=== PATIENT | female | born 1975 | race Two or more races ===

== ENCOUNTER 2020-05-06 13:04 | Outpatient (REF) | payer OTHER, SELFPAY ==
[2020-05-08 20:16] LABS: HPV mRNA E6/E7 rflx Not Detected (Not Detected)
== END 2020-05-06 13:05 | disposition home or self-care (01) ==
LOC: HO.LAB 13:04
PROVIDERS: PCP Hospitalist; Visit Provider Obstetrics & Gynecology
DX: Z01.419 Encounter for gynecological examination (general) (routine) without abnormal findings (principal); N97.9 Female infertility, unspecified; Z12.11 Encounter for screening for malignant neoplasm of colon
CPT/HCPCS: 36415; 87624; 88142

== ENCOUNTER 2020-05-08 08:01 | Outpatient (REF) | payer OTHER, SELFPAY ==
--- NOTE | ~2020-05-08 | MM_ITS ---
EXAMINATION: MM SCREENING DIGITAL BREAST TOMOSYNTHESIS, BILATERAL CLINICAL INFORMATION: Screening. Asymptomatic. Prior flv-of-hdiwd mammography from [place] currently unavailable. The lifetime risk of breast cancer based on the Tyrer-Cuzick Model is 13%. COMPARISON: None. TECHNIQUE: Digital breast tomosynthesis is performed in both the craniocaudal and mediolateral oblique views along with computer-aided detection (CAD). Synthesized 2D images are generated from the tomosynthesis. FINDINGS: The breasts are heterogeneously dense, which may obscure small masses (ACR BI-RADS breast composition Category c). There is fine fibronodular parenchymal pattern. There is no dominant nodularity, significant mass, architectural abnormality. The axilla and skin contours are unremarkable. There are diffuse scattered benign-appearing bilateral punctate round calcifications in each breast. Radiology department staff will attempt to retrieve prior hzw-jl-kobrh mammography to allow for comparison in an addendum report. MM/MM tomosynthesis screening BI IMPRESSION: No mammographic evidence of malignancy. Bilateral targeted punctate round calcifications. ASSESSMENT: BI-RADS 2: Benign RECOMMENDATION: 1. Routine annual mammography screening. 2. Radiology department staff will attempt to retrieve prior ddw-yo-jyurt mammography to allow for comparison in an addendum report. This patient's information was entered into a reminder system with a target due date for their next mammogram.
== END 2020-05-08 08:02 | disposition home or self-care (01) ==
LOC: HO.MAMMO 08:01
PROVIDERS: Visit Provider Obstetrics & Gynecology
DX: Z12.31 Encounter for screening mammogram for malignant neoplasm of breast (principal)
CPT/HCPCS: 77063; 77067

== ENCOUNTER → 2020-05-13 11:33 | Outpatient (BNVA) | payer OTHER, SELFPAY | PROVIDERS: PCP Hospitalist; Visit Provider Obstetrics & Gynecology ==

== ENCOUNTER → 2020-06-26 09:27 | Outpatient (BNVA) | payer OTHER, SELFPAY | PROVIDERS: PCP Hospitalist; Referring Provider Hospitalist; Visit Provider Physician Assistant ==

== ENCOUNTER 2021-05-09 09:05 | Outpatient (REF) | payer OTHER, SELFPAY ==
--- NOTE | ~2021-05-09 | MM_ITS ---
EXAMINATION: MM SCREENING DIGITAL BREAST TOMOSYNTHESIS, BILATERAL CLINICAL INFORMATION: Screening. Asymptomatic. The lifetime risk of breast cancer based on the Tyrer-Cuzick Model is 13%. COMPARISON: Mammography: 05/08/2020 TECHNIQUE: Digital breast tomosynthesis is performed in both the craniocaudal and mediolateral oblique views along with computer-aided detection (CAD). Synthesized 2D images are generated from the tomosynthesis. FINDINGS: The breasts are heterogeneously dense, which may obscure small masses (ACR BI-RADS breast composition Category c). There is fibronodular parenchymal pattern similar in distribution to prior exam. There is no significant mass or architectural abnormality. Again, there are numerous punctate calcifications throughout both breasts similar in number and distribution. No significant change. The axilla and skin contours are unremarkable. MM/MM tomosynthesis screening BI IMPRESSION: There are no significant changes from prior study. ASSESSMENT: BI-RADS 2: Benign RECOMMENDATION: Routine annual mammography screening. This patient's information was entered into a reminder system with a target due date for their next mammogram.
== END 2021-05-09 09:06 | disposition home or self-care (01) ==
LOC: HO.MAMMO 09:05
PROVIDERS: Visit Provider Hospitalist
DX: Z12.31 Encounter for screening mammogram for malignant neoplasm of breast (principal)
CPT/HCPCS: 77063; 77067

== ENCOUNTER 2022-05-15 09:14 | Outpatient (REF) | payer OTHER, SELFPAY ==
--- NOTE | ~2022-05-15 | MM_ITS ---
EXAMINATION: MM SCREENING DIGITAL BREAST TOMOSYNTHESIS, BILATERAL CLINICAL INFORMATION: Screening. Asymptomatic. The lifetime risk of breast cancer based on the Tyrer-Cuzick Model is 14%. COMPARISON: Mammography: 05/09/2021, 05/08/2020 (new baseline) TECHNIQUE: Digital breast tomosynthesis is performed in both the craniocaudal and mediolateral oblique views along with computer-aided detection (CAD). Synthesized 2D images are generated from the tomosynthesis. FINDINGS: The breasts are heterogeneously dense, which may obscure small masses (ACR BI-RADS breast composition Category c). There are no significant masses, abnormal calcifications, or other abnormalities. Again, there are diffuse bilateral round calcifications similar in distribution and number to prior studies. No developing density or architectural abnormality. The axilla are unremarkable. MM/MM tomosynthesis screening BI IMPRESSION: No mammographic evidence of malignancy. ASSESSMENT: BI-RADS 2: Benign RECOMMENDATION: Routine annual mammography screening. This patient's information was entered into a reminder system with a target due date for their next mammogram.
== END 2022-05-15 09:15 | disposition home or self-care (01) ==
LOC: HO.MAMMO 09:14
PROVIDERS: Visit Provider Hospitalist
DX: Z12.31 Encounter for screening mammogram for malignant neoplasm of breast (principal)
CPT/HCPCS: 77063; 77067

== ENCOUNTER → 2023-05-20 10:30 | Outpatient (BNV) | payer MEDICAID, SELFPAY | PROVIDERS: Visit Provider Radiology Diagnostic Radiology | DX: Z12.31 Encounter for screening mammogram for malignant neoplasm of breast (principal) | CPT/HCPCS: 77063; 77067 ==

== ENCOUNTER 2023-05-20 10:45 | Outpatient (REF) | payer MEDICAID, SELFPAY ==
--- NOTE | ~2023-05-20 | MM_ITS ---
EXAMINATION: MM SCREENING DIGITAL BREAST TOMOSYNTHESIS, BILATERAL CLINICAL INFORMATION: Screening. Asymptomatic. COMPARISON: Mammography: This study is compared with prior exams dating back to 2020. TECHNIQUE: Digital breast tomosynthesis is performed in both the craniocaudal and mediolateral oblique views along with computer-aided detection (CAD). Synthesized 2D images are generated from the tomosynthesis. FINDINGS: The breasts are heterogeneously dense, which may obscure small masses (ACR BI-RADS breast composition Category c). There are no significant masses, abnormal calcifications, or other abnormalities. Bilateral, benign calcifications are present in each breast. MM/MM tomosynthesis screening BI IMPRESSION: No mammographic evidence of malignancy. ASSESSMENT: BI-RADS BI-RADS 2 - Benign Findings RECOMMENDATION: Routine annual mammography screening. 1 year F/U This examination should not preclude the clinical evaluation of a suspicious palpable abnormality. This patient's information was entered into a reminder system with a target due date for their next mammogram.
== END 2023-05-20 10:46 | disposition home or self-care (01) ==
LOC: HO.MAMMO 10:45
PROVIDERS: PCP Student in an Organized Health Care Education/Training Program; Visit Provider Student in an Organized Health Care Education/Training Program
DX: Z12.31 Encounter for screening mammogram for malignant neoplasm of breast (principal)
CPT/HCPCS: 77063; 77067

== ENCOUNTER 2024-05-25 10:03 | Outpatient (REF) | payer MEDICAID, SELFPAY ==
--- OUTSIDE RECORDS SUMMARY | 2024-05-25 11:40 | XMS_ITS | Clinical Summary ---
Author Organization [facility] Address [address] [place] [address] Care Team Providers Care Dental Assistant Name Role Phone Elena Avila NP Primary Care Provider [phone] Source Comments PLEASE NOTE, if this patient is a minor, it may be UNLAWFUL to discuss sensitive information that is contained in these records (such as FAMILY PLANNING, MENTAL HEALTH or SUBSTANCE ABUSE) with the minor patient's parent or other person without the patient's specific authorization.[facility] Allergies No known active allergies Medications ibuprofen 400 mg tabletIndication s:Tension headache Take 1 Tablet by mouth 4 (four) times daily as needed for pain 120 Tablet 01/18/2023 Active carbamide peroxide (DEBROX) 6.5 % otic solutionIndicati ons:Bilateral impacted cerumen Place 10 Drops into both ears 2 (two) times daily 15 mL 2 08/30/2023 Active Active Problems Problem Noted Date Diagnosed Date Hx of complete eye exam 09/10/2023 Overview (09/10/2023): 09/06/2023 - Molding Cutter report: 1) Abnormal vision finding OU: New Rx glasses given today - f/u 1 yr 2) Macular Drusen OU: Recommend observation and f/u 1 yr 3) Nuclear Sclerosis OU: Trace cataracts found - not visually significant - f/u 1 year for MED DFE or sooner if vision changes 4) Astigmatism, Reqular OU: New Rx glasses - f/u 1 year 5) Myopia OU: New Rx glasses - f/u 1 year 6) Presbyopia OU: New Rx glasses - f/u 1 yr Hx of mammogram 06/18/2023 Overview (06/18/2023): 2023 - Mammogram - Findings: The breasts are heterogeneously dense, which may obscure small masses - No significant masses, abnormal calcifications, or other abnormalities. Bilateral, benign calcifications are present in each breast - BI- RADS 2 (benign findings) - Recommendation: Routine annual mammography screening. Encounters Date Type Department Care Team Description 03/28/2024 1:40 PM EST Office Visit [address] [phone] Elena Avila PA-C Annual physical exam (Primary Dx); Need for vaccination 03/27/2024 10:00 AM EST Office Visit [address] [phone] Elena Avila PA-C Elevated LDL cholesterol level (Primary Dx); Screening due; Adult BMI 25.0-25.9 kg/sq m from Last 3 Months Immunizations Immunization Administration Dates Next Due Flu, Cell Culture based, Pre servative Free, 6m+, Flucelvax 12/12/2021 Flu, Preservative Free 11/18/2020 HEP A-HEP B 11/14/2023 INFLUENZA, SEASONAL, INJECTABLE, PRESERVATIVE FR EE 11/14/2023 TDAP 11/14/2023,01/18/2023 Family History Medical History Relation Name Comments Lymphoma Father Prostate Cancer Maternal Grandfather Breast cancer Maternal Grandmother Lung Cancer Maternal Grandmother Diabetes Mother Hypertension Mother Stroke Mother Hypertension Paternal Aunt Prostate Cancer Paternal Grandfather Relation Name Status Comments Daughter Alive Father Maternal Grandfather Maternal Grandmother Mother Paternal Aunt Paternal Grandfather Paternal Grandmother Social History Tobacco Use Types Packs/Day Years Used Date Smoking Tobacco: Never Smokeless Tobacco: Never Tobacco Cessation:Counseling Given: Not Answered Alcohol Use Standard Drinks/Week Comments Never 0 (1 standard drink = 0.6 oz pur e alcohol) Social Connections Answer Date Recorded Connectedness 1 03/28/2024 Financial Resource Strain Answer Date R ecorded Financial Resource Strain 1 2024 Stress Answer Date Recorded Stress 1 03/28/2024 Physical Activity Answer Date Recorded Physical Activity 0 01/03/2023 Food Insecurity Answer Date Recorded Food 1 03/28/2024 Transportation Needs Answer Date Record ed Transportation 1 03/28/2024 Housing Stability Answer Date Recorded Housing 1 03/28/2024 Safety and Environment Answer Date Jeremie rded Safety 0 01/18/2023 Utilities Answer Date Recorded Utilities 1 03/28/2024 Employment Answer Date Recorded Employment 0 01/03/2023 Comments No Sex and Gender Information Value Date Recorded Sex Assigned at Female 01/18/2023 6:49 AM PST Legal Sex Female 7:02 AM PDT Gender Identity Female 01/18/2023 6:49 AM PST Sexual Orientation Straight 01/18/2023 6: 49 AM PST Last Filed Vital Signs Vital Sign Reading Time Taken Comments Blood Pressure 120/80 03/28/2024 1:34 PM EST Pulse 88 03/28/2024 1:34 PM EST Temperature 36.6 ??C (97.9 ??F) 03/28/2024 1:34 PM ES T Respiratory Rate 16 03/28/2024 1:34 PM EST Oxygen Saturation 100% 03/28/2024 1:34 PM EST Inhaled Oxygen Concentration - - Weight 66.7 kg (147 lb) 03/28/2024 1:34 PM EST Height 163.8 cm (5' 4.5 ) 03/28/2024 1:34 PM EST Body Mass Index 24.84 03/28/2024 1:34 PM EST Plan of Treatment Health Maintenance Due Date Last Done Comments Anxiety Screening [address] Colonography 05/21/2019 FIT/gFOBT 05/21/2019 Fecal DNA 05/21/2019 Flexible Sigmoidoscopy 05/21/2019 Imm-Hepatitis B (2 of 3 - Hep B Twinrix 3-dose series) 12/12/2023 11/14/2023 Relationship Safety Screening/Counseling 01/19/2024 01/18/2023 Breast Cancer Screening (Mammogram) 05/19/2024 2023 Diabetes Screening 03/27/2025 03/27/2024, 03/27/2024, 01/18/2023 Annual Preventive Care Visit 03/28/202512/2024, 03/28/2024, 01/18/2023 Hypertension Screening (#1) 03/28/2025 Tobacco Screening 03/28/2025 03/28/2024, 01/18/2023 Pap Smear 06/23/2026 06/24/2023 Cervical Cancer Screening 06/23/2028 Pap + HPV 06/23/2028 06/24/2023 Lipid Screening 03/27/2029 03/27/2024, 08/30/2023, 01/18/2023 Colonoscopy 07/05/2030 07/05/2020 Colorectal Cancer Screening 07/05/2030 Imm-DTaP/Tdap/Td (3 - Td or Tdap) 11/13/2033 11/14/2023, 01/18/2023 HIV Screening Completed 01/18/2023 Hepatitis C Screening Completed 01/18/2023 Imm-Influenza Completed 11/14/2023, 12/12/2021, 11/18/2020 Alcohol and Drug Screen Addressed 03/27/19 25, 08/30/2023, 01/18/2023 Overridden with the intention of not completing the topic Depression Annual Screen Completed 03/28/2024 Cervical Ablation/Cold-Knife Conization Discontinued Cervical Cryotherapy Discontinued Colposcopy Discontinued Endometrial Biopsy Discontinued Excision/Leep Discontinued HPV Genotyping Discontinued [id number] Discontinued Vaginal Pap Discontinued Vulvoscopy Discontinued Procedures Procedure Name Priority Date/Time Associated Diagnosis Comments BLOOD COUNT COMPLETE AUTO&AUTO DIFRNTL WBC Routine 03/27/2024 11:13 AM EST Elevated LDL cholesterol level Screening due TSH W/RFLX FREE T4 Routine 03/27/2024 11 :13 AM EST Elevated LDL cholesterol level Screening due Adult BMI 25.0-25.9 kg/sq m HGBA1C W/MPG Routine 03/27/2024 11:13 AM EST Elevated LDL cholesterol level Screening due Adult BMI 25.0-25.9 kg/sq m LIPID PANEL Routine 03/27/2024 11:13 AM EST Elevated LDL cholesterol level Screening due Adult BMI 25.0-25.9 kg/sq m COMPREHENSIVE METABOLIC PANEL Routine 03/27/2024 11:13 AM EST Elevated LDL cholesterol level Screening due Adult BMI 25.0-25.9 kg/sq m THINPREP IMAGING PAP, HPV MRNA E6/E7 RFLEX HPV 16,18/45 CT/NG Routine 06/24/2023 2:39 PM EDT Women's annual routine gynecological examination HISTORIC MAMMOGRAM 2023 3: 00 AM EDT HIV 1/2 AG & AB W/RFLX (4TH GEN) Routine 01/18/2023 9:53 AM EST Screening due HEPATITIS C AB W/RFLX HCV RNA, QT, RT PCR Routine 01/18/2023 9:53 AM EST Screening due HISTORIC COLONOSCOPY 07/05/2020 3:00 AM EDT from Last 3 Months or Most Recently Relevant to Health Maintenance Results * (ABNORMAL) HGBA1C W/MPG (03/27/2024 11:13 AM EST) HEMOGLOBIN A1C 6.0(H) <5.7 % of total Hgb [facility] Comment: For someone without known diabetes, a hemoglobin A1c value between 5.7% and 6.4% is consistent with prediabetes and should be confirmed with a follow-up test. For someone with known diabetes, a value <7% indicates that their diabetes is well controlled. A1c targets should be individualized based on duration of diabetes, age, comorbid conditions, and other considerations. This assay result is consistent with an increased risk of diabetes. Currently, no consensus exists regarding use of hemoglobin A1c for diagnosis of diabetes for children. MEAN PLASMA GLUCOSE 136 mg/dL (calc) [facility] Blood Blood / Unknown 03/27/2024 1 1:13 AM EST 03/27/2024 11:13 AM EST us Elena Avila PA-C LAB - BLOOD DRAW Final Resu lt [employer] [address] [address], [facility] [address] [place] [address] * TSH W/RFLX FREE T4 (03/27/2024 11:13 AM EST) [facility] TSH W/REFLEX TO FT4 1.80 0.40 - 4.50 mIU/L [facility] Comment: ?Reference Range ?> or = 20 Years ??0.40-4.50 ? Ranges ?First trimester ?0.26-2.66 ?Second trimester ?? 0.55-2.73 ?Third trimester ?0.43-2.91 Blood Blood / Unknown 03/27/2024 1 1:13 AM EST 03/27/2024 11:13 AM EST us Elena Avila PA-C LAB - BLOOD DRAW Edited Res ult - Final [facility] [address] [address], [email or web address] [address] [address] * BLOOD COUNT COMPLETE AUTO&AUTO DIFRNTL WBC (03/27/2024 11:13 AM EST) [facility] WHITE BLOOD CELL COUNT 7.3 3.8 - 10.8 Thousand/ uL [facility] RED BLOOD CELL COUNT 4.49 3.80 - 5.10 Million/u L [facility] HEMOGLOBIN 13.5 11.7 - 15.5 g/dL [facility] HEMATOCRIT 41.8 35.0 - 45.0 % [facility] MCV 93.1 80.0 - 100.0 fL [facility] MCH 30.1 27.0 - 33.0 pg [facility] MCHC 32.3 32.0 - 36.0 g/dL [facility] Comment: For adults, a slight decrease in the calculated MCHC value (in the range of 30 to 32 g/dL) is most likely not clinically significant; however, it should be interpreted with caution in correlation with other red cell parameters and the patient's clinical condition. RDW 12.2 11.0 - 15.0 % [facility] PLATELET COUNT 264 140 - 400 Thousand/ uL [facility] MPV 11.8 7.5 - 12.5 fL [facility] [email or web address] ABSOLUTE NEUTROPHILS 3,884 1,500 - 7,800 cells/uL [facility] ABSOLUTE LYMPHOCYTES 2,767 850 - 3,900 cells/uL [facility] ABSOLUTE MONOCYTES 504 200 - 950 cells/uL [facility] ABSOLUTE EOSINOPHILS 88 15 - 500 cells/uL [facility] ABSOLUTE BASOPHILS 58 0 - 200 cells/uL [facility] NEUTROPHILS PCT 53.2 % Q[facility] T [email or web address] LYMPHOCYTES 37.9 % [facility] [employer] MONOCYTES 6.9 % [facility] [employer] EOSINOPHILS 1.2 % [facility] [employer] BASOPHILS 0.8 % [facility] [employer] Blood Blood / Unknown 03/27/2024 1 1:13 AM EST 03/27/2024 11:13 AM EST Elena Avila PA-C LAB - BLOOD DRAW Edited Res ult - Final [facility] [address] [place] [phone], [facility] [address] [place] [phone] * (ABNORMAL) LIPID PANEL (03/27/2024 11:13 AM EST) CHOLESTEROL, TOTAL 209(H) <200 mg/dL [email or web address] HDL CHOLESTEROL 62 > OR = 50 mg/dL [facility] TRIGLYCERIDES 109 <150 mg/dL [facility] LDL-CHOLESTEROL 125(H) 99 mg/dL (calc) [facility] Comment: Reference range: <100 Desirable range <100 mg/dL for primary prevention; ?? <70 mg/dL for patients with CHD or diabetic patients with > or = 2 CHD risk factors. LDL-C is now calculated using the Ritchie-Conn calculation, which is a validated novel method providing better accuracy than the Friedewald equation in the estimation of LDL-C. Ritchie BASURTO et al. HARVEY. 2013;310(19): 6377-7688 (http://education.[employer]/faq/JLM481) CHOL/HDLC RATIO 3.4 <5.0 (calc) [facility] NON-HDL CHOLESTEROL 147(H) <130 mg/dL (calc) [facility] Comment: For patients with diabetes plus 1 major ASCVD risk factor, treating to a non-HDL-C goal of <100 mg/dL (LDL-C of <70 mg/dL) is considered a therapeutic option. Blood Blood / Unknown 03/27/2024 1 1:13 AM EST 03/27/2024 11:13 AM EST Elena Avila PA-C LAB - BLOOD DRAW Final Resu lt [facility] [address] [address], [facility] [address] [place] [address] * (ABNORMAL) COMPREHENSIVE METABOLIC PANEL (03/27/2024 11:13 AM EST) [facility] GLUCOSE 102(H) 65 - 99 mg/dL [facility] Comment: ?Fasting reference interval For someone without known diabetes, a glucose value between 100 and 125 mg/dL is consistent with prediabetes and should be confirmed with a follow-up test. UREA NITROGEN (BUN) 9 7 - 25 mg/dL [facility] CREATININE (blood) 0.72 0.50 - 0.99 mg/dL [facility] EGFR 102 > OR = 60 mL/min/1. 73m2 [facility] BUN/CREATININE RATIO SEE NOTE: [facility] Comment: ?? Not Reported: BUN and Creatinine are within ?? reference range. ? SODIUM 137 135 - 146 mmol/L [facility] POTASSIUM 4.5 3.5 - 5.3 mmol/L [facility] CHLORIDE 102 98 - 110 mmol/L [facility] CARBON DIOXIDE 28 20 - 32 mmol/L [facility] CALCIUM 9.7 8.6 - 10.2 mg/dL [facility] PROTEIN, TOTAL 7.2 6.1 - 8.1 g/dL [facility] ALBUMIN 4.4 3.6 - 5.1 g/dL [facility] GLOBULIN 2.8 1.9 - 3.7 g/dL (calc) [facility] ALBUMIN/GLOBULI N RATIO 1.6 1.0 - 2.5 (calc) [facility] BILIRUBIN, TOTAL 0.3 0.2 - 1.2 mg/dL [facility] ALKALINE PHOSPHATASE 76 31 - 125 U/L [facility] AST 22 10 - 35 U/L [facility] ALT 23 6 - 29 U/L [facility] Blood Blood / Unknown 03/27/2024 1 1:13 AM EST 03/27/2024 11:13 AM EST Elena Avila PA-C LAB - BLOOD DRAW Edited Res ult - Final [facility] [address] [place] [phone], [facility] [address] [place] [phone] * THINPREP IMAGING PAP, HPV MRNA E6/E7 RFLEX HPV 16,18/45 CT/NG (06/24/2023 2:39 PM EDT) CHLAMYDIA TRACHOMATIS RNA, TMA NOT DETECTED NOT DETECTED [facility] NEISSERIA GONORRHOEAE RNA, TMA NOT DETECTED NOT DETECTED [facility] COMMENT [facility] CLINICAL INFORMATION See Note [facility] Comment:None given LMP See Note [facility] Comment:NONE GIVEN PREV. PAP See Note [facility] Comment:NONE GIVEN PREV. BX See Note [facility] Comment:NONE GIVEN SOURCE See Note [facility] Comment:Cervix STATEMENT OF ADEQUACY See Note [facility] Comment: Satisfactory for evaluation. Endocervical/transformation zone component present. INTERPRETATION/RESU LT See Note [facility] Comment: Cytology Results: Negative for intraepithelial lesion or malignancy. COMMENT See Note [facility] Comment: This Pap test has been evaluated with computer assisted technology. SLAB WORKER See Note [facility] Comment: [place], CT(ASCP) CT screening location: [address] ??[id number] COMMENT [facility] [employer] [facility] HPV MRNA E6/E7 Not Detected Not Detected [facility] [employer] [facility] Comment: Methodology: Warehouse Picker-Mediated Amplification This assay detects E6/E7 viral messenger RNA (mRNA) from 14 high-risk HPV types (16,18,31,33,35,39,45,51,52,56,58,59,66,68). Cervical sources are required for HPV testing. If a vaginal source from a patient who has had a total hysterectomy with removal of cervix was submitted, please contact the testing laboratory for alternative testing options. For additional information, please refer to http://[employer]/faq/VBY377g4 (This link if provided for information/ educational purposes only.) Swab Cervix uteri structure / Unknown 06/24/2023 2:39 PM EDT 06/25/2023 5:25 AM EDT Narrative [facility] - 06/28/2023 1:44 PM EDT EXPLANATORY NOTE: The Pap is a screening test for cervical cancer. It is not a diagnostic test and is subject to false negative and false positive results. It is most reliable when a satisfactory sample, regularly obtained, is submitted with relevant clinical findings and history, and when the Pap result is evaluated along with historic and current clinical information. The analytical performance characteristics of this assay, when used to test SurePath(TM) specimens have been determined by [employer]. The modifications have not been cleared or approved by the FDA. This assay has been validated pursuant to the CLIA regulations and is used for clinical purposes. For additional information, please refer to https://[employer]/faq/YKB664 (This link is being provided for information/ educational purposes only.) us Desi Coleman DO LAB - NO BLOOD DRAW Final Resu lt [employer] [address] [address], [employer] [address] [address] * HISTORIC MAMMOGRAM (2023 3:00 AM EDT) 2023 3:00 AM EDT us Elena Avila PA-C IMG MAMMO Edited Resu lt - Final * HEPATITIS C AB W/RFLX HCV RNA, QT, RT PCR (01/18/2023 9:53 AM EST) HEPATITIS C ANTIBODY NON-REACT SUSIHLA NON-REACT SUSHILA [facility] Comment: HCV antibody was non-reactive. There is no laboratory evidence of HCV infection. In most cases, no further action is required. However, if recent HCV exposure is suspected, a test for HCV RNA (test code 62120) is suggested. For additional information please refer to http://[employer]/faq/XEF54d5 (This link is being provided for informational/ educational purposes only.) Blood Blood / Unknown 01/18/2023 9 :53 AM EST 01/18/2023 9:54 AM EST us Elena Avila PA-C LAB - BLOOD DRAW Final Resu lt [facility] [employer] [address] [address], [facility] [employer] [address] [phone] * HIV 1/2 AG & AB W/RFLX (4TH GEN) (01/18/2023 9:53 AM EST) HIV AG/AB, 4TH GEN NON-REAC TIVE NON-REAC TIVE [email or web address] Comment: HIV-1 antigen and HIV-1/HIV-2 antibodies were not detected. There is no laboratory evidence of HIV infection. PLEASE NOTE: This information has been disclosed to you from records whose confidentiality may be protected by state law. ??If your state requires such protection, then the state law prohibits you from making any further disclosure of the information without the specific written consent of the person to whom it pertains, or as otherwise permitted by law. A general authorization for the release of medical or other information is NOT sufficient for this purpose. ?? For additional information please refer to http://education.[employer]/faq/RKK357 (This link is being provided for informational/ educational purposes only.) The performance of this assay has not been clinically validated in patients less than 2 years old. Blood Blood / Unknown 01/18/2023 9 :53 AM EST 01/18/2023 9:54 AM EST Elena Avila PA-C LAB - BLOOD DRAW Final Resu lt [facility] [employer] [address] [place] [phone], [facility] [employer] [address] [phone] * HISTORIC COLONOSCOPY (07/05/2020 3:00 AM EDT) 07/05/2020 3:00 AM EDT Elena Avila CENTRAL SUPPLY WORKER PROCEDURES Final Result from Last 3 Months or Most Recently Relevant to Health Maintenance Insurance [facility] Care Teams Dental Assistant Relationship Specialty Start Date End Date Elena Avila NP [address] [place] [address] PCP - General Family Medicine, Physician 12/10/22
== END 2024-05-25 10:04 | disposition home or self-care (01) ==
LOC: HO.MAMMO 10:03
PROVIDERS: PCP Student in an Organized Health Care Education/Training Program; Visit Provider Student in an Organized Health Care Education/Training Program
DX: Z12.31 Encounter for screening mammogram for malignant neoplasm of breast (principal)
CPT/HCPCS: 77063; 77067

== ENCOUNTER → 2024-05-25 10:30 | Outpatient (BNV) | payer MEDICAID, SELFPAY | PROVIDERS: PCP Student in an Organized Health Care Education/Training Program; Visit Provider Internal Medicine | DX: Z12.31 Encounter for screening mammogram for malignant neoplasm of breast (principal) | CPT/HCPCS: 77063; 77067 ==